=== PATIENT | male | born 1980 | race Caucasian/White ===

== ENCOUNTER 2021-05-15 08:04 | Emergency (ER) | payer SELFPAY ==
[2021-05-15 08:15] VITALS: BP 127/75; PULSE 84; RESP 16; TEMP 36.3; O2SAT 99; BMI 40.6
--- NOTE | 2021-05-15 08:22 | ED_ITS ---
HPI - Chest Pain General Chief Complaint: Abdominal Pain Stated Complaint: referred from [facility]; abdominal/chest pain Time Seen by Provider: 05/15/21 08:10 Mode of arrival: Ambulatory History of Present Illness HPI narrative: Patient is a 41-year-old male with no past medical history presenting today with chest discomfort and left upper quadrant. 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 He says it is worse with movement so he has been taking Advil a today for the last few weeks. Last week he was seen evaluated in the ED in [place] where he was diagnosed with GERD. He was put on Prilosec and discharged home. He says this chest pain has continued he has had decreased appetite. And now yesterday started having black stool. He has had 2-3 episodes of black stool he has left upper quadrant pain. Denies any nausea or vomiting. Related Data Home Medications Medication Instructions Recorded Confirmed omeprazole magnesium 20 mg 20 mg PO DAILY 05/15/21 05/15/21 tablet,delayed release (Prilosec OTC) Previous Rx's Medication Instructions Recorded pantoprazole 40 mg tablet,delayed 40 mg PO BID #30 tab 05/15/21 release (Protonix) Allergies Allergy/AdvReac Type Severity Reaction Status Date / Time No Known Drug Allergies Allergy Unverified 05/15/21 08:18 Review of Systems Review of Systems Narrative: GENERAL: Denies chills, fatigue, malaise, fever, sweats, travel HEENT: Denies sinus pain, ear pain, sore throat, difficulty swallowing, neck pain RESPIRATORY: Denies dyspnea, cough, wheezing, hemoptysis, sputum. CARDIOVASCULAR: See HPI GASTROINTESTINAL: See HPI : Denies dysuria, frequency, incontinence, hematuria, urinary retention, flank pain. MUSCULOSKELETAL: Denies weakness, joint pain, or bony pain SKIN: No rash, no erythema, no pruritus NEUROLOGIC: Denies weakness, dizziness, headache, numbness, change in speech, confusion PSYCHIATRIC: No concerning psychosocial issues. 12 point review of systems is negative except for those stated above and HPI Patient History Social History Smoking Status: Current every day smoker Smoking Status: Current every day smoker Substance Use Type: does not use Exam Initial Vital Signs Initial Vital Signs: Vital Signs Temperature 97.4 F L 04/08/22 08:15 Pulse Rate 84 05/15/21 08:15 Respiratory Rate 16 05/15/21 08:15 Blood Pressure 127/75 05/15/21 08:15 Pulse Oximetry 99 05/15/21 08:15 GENERAL: Well-appearing 41-year-old male and in no acute distress. HEENT: Head atraumatic,EOMI, pupils reactive, face symmetric, moist mucous membranes CARDIOVASCULAR: Regular rate and rhythm without murmurs, rubs or gallops. RESPIRATORY: Breath sounds equal bilaterally, no wheezes rales or rhonchi. ABDOMEN: Soft, mild left upper quadrant pain no guarding no rebound RECTAL: Dark stool Hemoccult positive no hemorrhoids EXTREMITIES: Normal range of motion, no clubbing or edema. Neurovascularly intact NEUROLOGICAL: Alert and oriented x4.Normal gait and speech. SKIN: Warm, dry, no laceration, no petechiae, no rashes or lesions. Course Orders Ordered: ED Orders 05/15/21 08:18 Complete Blood Count AUTO DIFF Stat Comprehensive Metabolic Panel Stat Lactate (Lactic Acid) Stat Lipase Stat Partial Thromboplastin Time Stat Prothrombin Time INR Stat Troponin & CK Cardiac Panel Stat Type and Screen Stat 05/15/21 08:23 XR chest 1V Stat EKG-12 Lead Stat Discontinued Medications Pantoprazole Sodium (Pantoprazole 40 Mg Vial) 40 mg IV NOW ONE Stop: 05/15/21 08:24 Last Admin: 05/15/21 08:57 Dose: 40 mg Documented by: LAMBERTO Vital Signs Vital signs: Vital Signs - 8 hr 05/15/21 08:15 05/15/21 09:28 05/15/21 09:30 Temperature 97.4 F L Pulse Rate 84 77 74 Respiratory Rate 16 19 19 Blood Pressure 127/75 126/78 Pulse Oximetry 99 97 96 MDM - Chest Pain Lab Data Result diagrams: 05/15/21 08:18 05/15/21 08:18 Labs: Lab Results 05/15/21 05/15/21 05/15/21 Range/Units 08:18 08:18 08:18 WBC 10.1 (4.5-11.0) X10^3/uL RBC 5.41 (4.5-5.9) X10^6/uL Hgb 16.1 (13.5-17.5) g/dL Hct 45.7 (41-53) % MCV 84.5 (80-100) fL MCH 29.7 (26-34) PG MCHC 35.2 (30-36) % RDW 13.6 (11.6-14.8) % Plt Count 199 (150-400) X10^3/uL Neut % (Auto) 67.1 (50-75) % Lymph % (Auto) 22.6 L (25-40) % Vermilion % (Auto) 7.6 (3-14) % Eos % (Auto) 1.9 L (2-4) % Baso % (Auto) 0.8 (0-2) % Neut # (Auto) 6800 (4968-0239) /uL Lymph # (Auto) 2300 (1915-3317) /uL Vermilion # (Auto) 800 (0-900) /uL Eos # (Auto) 200 (0-450) /uL Baso # (Auto) 100 (0-100) /uL PT 11.8 (10.1-12.7) SECONDS INR 1.0 (0.9-1.3) APTT 37 H (26.4-36.2) SECONDS Sodium 140 (137-145) mmol/L Potassium 3.6 (3.4-5.1) mmol/L Chloride 107 (98-107) mmol/L Carbon Dioxide 23 (22-32) mmol/L BUN 15 (9-20) mg/dL Creatinine 0.80 (0.66-1.25) mg/dL Estimated GFR > 60.0 (>60) mL/min BUN/Creatinine Ratio 18.8 (6-22) Glucose 121 H (70-100) mg/dL Lactate (0.7-2.1) mmol/L Calcium 9.0 (8.4-10.2) mg/dL Total Bilirubin 1.0 (0.2-1.3) mg/dL AST 22 (17-59) IU/L ALT 17 (<50) IU/L Alkaline Phosphatase 120 (38-126) U/L Total Creatine Kinase 39 L (55-170) U/L CK-MB (CK-2) TNP CK-MB (CK-2) Rel Index TNP Troponin I < 0.012 (0.01-0.034) ng/mL Total Protein 7.8 (6.3-8.2) g/dL Albumin 4.5 (3.5-5.0) g/dL Globulin 3.3 (1.7-4.1) g/dL Albumin/Globulin Ratio 1.4 (1.0-2.8) Lipase 43 (23-300) U/L Blood Type Antibody Screen 05/15/21 05/15/21 Range/Units 08:18 08:18 WBC (4.5-11.0) X10^3/uL RBC (4.5-5.9) X10^6/uL Hgb (13.5-17.5) g/dL Hct (41-53) % MCV (80-100) fL MCH (26-34) PG MCHC (30-36) % RDW (11.6-14.8) % Plt Count (150-400) X10^3/uL Neut % (Auto) (50-75) % Lymph % (Auto) (25-40) % Vermilion % (Auto) (3-14) % Eos % (Auto) (2-4) % Baso % (Auto) (0-2) % Neut # (Auto) (8933-7422) /uL Lymph # (Auto) (8599-7083) /uL Vermilion # (Auto) (0-900) /uL Eos # (Auto) (0-450) /uL Baso # (Auto) (0-100) /uL PT (10.1-12.7) SECONDS INR (0.9-1.3) APTT (26.4-36.2) SECONDS Sodium (137-145) mmol/L Potassium (3.4-5.1) mmol/L Chloride (98-107) mmol/L Carbon Dioxide (22-32) mmol/L BUN (9-20) mg/dL Creatinine (0.66-1.25) mg/dL Estimated GFR (>60) mL/min BUN/Creatinine Ratio (6-22) Glucose (70-100) mg/dL Lactate 0.8 (0.7-2.1) mmol/L Calcium (8.4-10.2) mg/dL Total Bilirubin (0.2-1.3) mg/dL AST (17-59) IU/L ALT (<50) IU/L Alkaline Phosphatase (38-126) U/L Total Creatine Kinase (55-170) U/L CK-MB (CK-2) CK-MB (CK-2) Rel Index Troponin I (0.01-0.034) ng/mL Total Protein (6.3-8.2) g/dL Albumin (3.5-5.0) g/dL Globulin (1.7-4.1) g/dL Albumin/Globulin Ratio (1.0-2.8) Lipase (23-300) U/L Blood Type O Positive Antibody Screen Negative Point of Care Testing Stool Occult Blood Positive Imaging Data Chest x-ray: Radiologist's Impression: PROCEDURE:? XR CHEST 1V ? INDICATIONS:? chest pain ? TECHNIQUE:? One view of the chest was acquired.? ? COMPARISON:? None. ? FINDINGS:? ? Surgical changes and devices:? None.? ? Lungs and pleura:? Lungs are clear.? No pleural effusions or pneumothorax.? ? Mediastinum:? Mediastinal contours appear normal.? Heart size is normal.? ? Bones and chest wall:? No suspicious bony lesions.? Overlying soft tissues appear unremarkable.? ? IMPRESSION:? No acute process. ? ? Dictated by: Rose Ly M.D. on 05/15/2021 at 9:12 ? ? Approved by: Rose Ly M.D. on 05/15/2021 at 9:13 ? ECG Data Interpretation: Normal sinus rhythm rate 71 OK interval 1 a two view RS [address] changes or T-wave inversions no priors to compare MDM Narrative Medical decision making narrative: Patient is hemodynamically stable probable peptic ulcer eating. On Prilosec. I discussed case briefly with Dr. Casillas who agrees with outpatient follow-up. She also recommend increasing Prilosec to twice a day. I have discussed results with patient at this time no need for admission. I also gave him strict return precautions I discussed all findings with the patient, Education has been performed regarding treatment plan, diagnosis, warning signs and symptoms and all concerns have been addressed. Verbally agree with and understood all of the above. Discharge Plan Departure Patient Disposition: Home Clinical Impression: Peptic ulcer disease with hemorrhage Instructions: Duodenal Ulcer, DI for Peptic Ulcer Activity Restrictions/Additional Instructions: *You have been diagnosed with peptic ulcer with bleeding *What to do: At this time he likely have an ulcer in your stomach from taking Advil/NSAIDs. Please do not take this medication. I expect that he will still have intermittent black stool but it should start to slow. Please avoid Pepto-Bismol You may need to see surgery please call them today or Tuesday to schedule outpatient follow-up *Continue to take medications as directed Protonix 40 mg twice a day for 1 month *Follow up with your primary care provider in 2-3 days or call [phone] *Return to ER if you should have vomiting blood, increased abdominal pain, dizziness, lightheadedness, multiple large black bowel movements for any new, wo rsening or concerning symptoms Prescriptions: New pantoprazole [Protonix] 40 mg tablet,delayed release (DR/EC) 40 mg PO BID Qty: 30 0RF No Action omeprazole magnesium [Prilosec OTC] 20 mg tablet,delayed release (DR/EC) 20 mg PO DAILY 0RF Referrals: [facility] [Provider Group] Suzi Casillas MD [Physician] - Miscellaneous,MD Derek [Primary Care Provider] -
--- NOTE | 2021-05-15 08:23 | DI.RAD.S_ITS ---
PROCEDURE: XR CHEST 1V INDICATIONS: chest pain TECHNIQUE: One view of the chest was acquired. COMPARISON: None. FINDINGS: Surgical changes and devices: None. Lungs and pleura: Lungs are clear. No pleural effusions or pneumothorax. Mediastinum: Mediastinal contours appear normal. Heart size is normal. Bones and chest wall: No suspicious bony lesions. Overlying soft tissues appear unremarkable. IMPRESSION: No acute process. Dictated by: Rose Ly M.D. on 05/15/2021 at 9:12 Approved by: Rose Ly M.D. on 05/15/2021 at 9:13
[2021-05-15 08:30] LABS: Add Manual Diff / Slide Review NO; Basophils Absolute Auto 100 /uL (0-100); Basophils Percent Auto 0.8 % (0-2); Eosinophils Absolute Auto 200 /uL (0-450); Eosinophils Percent Auto 1.9 % (2-4); Hematocrit 45.7 % (41-53); Hemoglobin 16.1 g/dL (13.5-17.5); Lymphocytes Absolute Auto 2300 /uL (1100-4500); Lymphocytes Percent Auto 22.6 % (25-40); Mean Corpuscular HGB Conc 35.2 % (30-36); Mean Corpuscular Hemoglobin 29.7 PG (26-34); Mean Corpuscular Volume 84.5 fL (80-100); Monocytes Absolute Auto 800 /uL (0-900); Monocytes Percent Auto 7.6 % (3-14); Neutrophils Absolute Auto 6800 /uL (1500-7000); Neutrophils Percent Auto 67.1 % (50-75); Platelet Count 199 X10^3/uL (150-400); Red Blood Cell Count 5.41 X10^6/uL (4.5-5.9); Red Cell Distribution Width 13.6 % (11.6-14.8); White Blood Cell Count 10.1 X10^3/uL (4.5-11.0)
[2021-05-15 08:34] LABS: Prothrombin Time 11.8 SECONDS (10.1-12.7)
[2021-05-15 08:36] LABS: PTT Partial Thromboplastin Tim 37 SECONDS (26.4-36.2)
[2021-05-15 08:41] LABS: Lactate (Lactic Acid) 0.8 mmol/L (0.7-2.1)
[2021-05-15 08:42] LABS: Alanine Aminotransferase 17 IU/L (<50); Albumin 4.5 g/dL (3.5-5.0); Albumin Globulin Ratio 1.4 (1.0-2.8); Alkaline Phosphatase 120 U/L (38-126); Aspartate Aminotransferase 22 IU/L (17-59); BUN Creatinine Ratio 18.8 (6-22); Blood Urea Nitrogen 15 mg/dL (9-20); Carbon Dioxide 23 mmol/L (22-32); Chloride 107 mmol/L (98-107); Creatine Kinase 39 U/L (55-170); Estimated Glomerular Filt Rate > 60.0 mL/min (>60); Globulin 3.3 g/dL (1.7-4.1); Glucose 121 mg/dL (70-100); HEMOLYSIS < 15 (0-50); Lipase 43 U/L (23-300); Potassium 3.6 mmol/L (3.4-5.1); Sodium 140 mmol/L (137-145); Total Protein 7.8 g/dL (6.3-8.2)
[2021-05-15 08:53] LABS: Troponin I < 0.012 ng/mL (0.01-0.034)
[2021-05-15] MEDS: PANTOPRAZOLE 40 MG VIAL IV (08:57)
[2021-05-15 09:28] VITALS: PULSE 77; RESP 19; O2SAT 97
[2021-05-15 09:30] VITALS: BP 126/78; PULSE 74; RESP 19; O2SAT 96
== END 2021-05-15 09:43 | disposition home or self-care (01) ==
PROVIDERS: Emergency Provider Emergency Medicine
DX: K26.4 Chronic or unspecified duodenal ulcer with hemorrhage (principal); R07.9 Chest pain, unspecified
CPT/HCPCS: 36415; 71045; 80053; 82272; 82550; 83605; 83690; 84484; 85025; 85610; 85730; 86850; 86900; 86901; 93005; 93010; 96374; 99284; C9113